=== PATIENT | female | born 1975 | race Caucasian/White ===

== ENCOUNTER 2018-07-11 13:24 | Emergency (ER) | payer OTHER, SELFPAY ==
[2018-07-11 13:28] VITALS: BP 157/84; PULSE 82; RESP 16; TEMP 36.7; O2SAT 98
--- NOTE | 2018-07-11 13:52 | W.ED.GENAD ---
Discharge Plan Disposition Patient Disposition: HOME Condition: Stable Discharge Details Chief Complaint: RespSymp Clinical Impression: Chronic cough, Dyspnea on exertion, Bronchitis Primary Care Provider: Myla Granado ED Provider: Angie Ortez Home Meds and New Rx's Prescriptions: New prednisone 20 mg tablet 20 mg PO DIRECTED Qty: 12 RF: 0 codeine-guaifenesin 10-100 mg/5 mL liquid 10 ml PO Q6H PRN (Reason: cough) Qty: 100 RF: 0 levofloxacin [Levaquin] 750 mg tablet 750 mg PO DAILY 5 Days Qty: 5 RF: 0 No Action escitalopram oxalate [Lexapro] 20 MG tablet 20 mg PO DAILY RF: 0 lamotrigine [Lamictal] 150 MG tablet 100 mg PO DAILY RF: 0 metoprolol succinate 50 MG tablet extended release 24 hr 50 mg PO DAILY RF: 0 multivitamin [Daily Multi-Vitamin] 1 EACH tablet 1 ea PO DAILY RF: 0 ibuprofen 200 MG tablet 200 mg PO PRN PRNRF: 0 omeprazole 20 MG capsule,delayed release(DR/EC) 20 mg PO DAILY RF: 0 metformin 500 mg Tablet 500 mg PO BID RF: 0 insulin glargine [Lantus U-100 Insulin] 100 unit/mL Solution 50 unit SUBCUT DAILY RF: 0 Discharge Instructions Instructions: Acute Bronchitis (ED), Dyspnea (ED), Acute Cough (ED) Additional Instructions: Continue to use your albuterol inhaler as needed and directed. Take the steroids and antibiotics until finished. Use the cough medicine as needed and directed. Check you sugar daily as steroids can raise your blood sugar. Watch your sugar and carb intake while taking steroids. Call your primary care doctor tomorrow morning to schedule follow-up for reevaluation. Return immediately to the emergency department with any worsening or new concerning symptoms. Discharge Data Discharge Physician: Angie Ortez Medical Decision Making 43-year-old female with a history of diabetes, hypertension, bipolar disorder who presents for persistent cough for the past 3 weeks. Main complaint is cough and dyspnea on exertion. Denies any chest pain or fever. Has been taking p.o. No relief with 40mg prednisone x 3 days and proair. Blood pressure mildly hypertensive otherwise vitals within normal limits. Normal respiratory rate, oxygen saturation and afebrile. Patient appears nontoxic, able to speak in full sentences. Lungs clear to auscultation, no wheezing noted on exam. Patient frequently coughing during exam. No leg swelling or calf tenderness. Appears c/w persistent viral infection that may have developed into bacterial infection or pneumonia. No complaints of chest pain and symptoms appear more infectious, so ACS unlikely. Wells score low, PERC negative and no other DVT/PE risk factors so unlikely pulmonary embolism. Patient is a nurse at [employer], [place]. She is offered a chest x-ray but declines. She has normal respirations, oxygen saturation and no fever with normal lung exam. We engaged in a shared decision-making process and patient would rather have a trial of antibiotics, a longer course of steroids, and cough medicine with plans to return if worse. Patient states she does not regularly check her sugar but states her last hemoglobin A1c was 6. She is instructed to check her sugar daily due to risk of hyperglycemia with steroid use. She is instructed to drink plenty of fluids, get plenty of rest, and continue her albuterol inhaler as directed. She is instructed to call her primary care doctor tomorrow to arrange for follow-up appointment for reevaluation this week and to return here immediately if worse. HPI General Mode of arrival: ambulatory. Date/Time Provider Initiated Documentation: 07/11/18 13:35. Limitations to Documentation: no limitations. Information obtained by: patient. HPI Narrative: Patient is a 43-year-old female with a history of diabetes, hypertension, bipolar who presents with a complaint of persistent cough for the past 3 weeks. Patient states her symptoms started as a URI with runny nose, sore throat cough but has progressed to worsening shortness of breath with exertion and persistent cough, worse at night. States the cough is occasionally dry but also productive of green sputum. She states her symptoms started with fever 3 weeks ago but not now. She states she has been eating and drinking well otherwise. She saw her primary care doctor earlier this week for the same complaint and was started on pro-air and 40 mg of prednisone for 3 days. She states she finished the steroids yesterday. She denies any chest pain, recent travel, recent surgery, leg pain or swelling. Related Data Home Medications Medication Instructions Recorded Confirmed escitalopram oxalate [Lexapro] 20 mg PO DAILY tab-cap 05/02/13 07/11/18 multivitamin [Daily Multi-Vitamin] 1 ea PO DAILY 01/21/14 07/11/18 ibuprofen 200 mg PO PRN PRN 04/13/15 07/11/18 omeprazole 20 mg PO DAILY 04/13/15 07/11/18 lamotrigine [Lamictal] 100 mg PO DAILY tab-cap 11/15/15 07/11/18 metoprolol succinate 50 mg PO DAILY tab-cap 07/17/16 07/11/18 codeine-guaifenesin 10 ml PO Q6H PRN #100 ml 07/11/18 insulin glargine [Lantus U-100 50 unit SUBCUT DAILY 07/11/18 07/11/18 Insulin] levofloxacin [Levaquin] 750 mg PO DAILY 5 Days #5 tab 07/11/18 metformin 500 mg PO BID 07/11/18 07/11/18 prednisone 20 mg PO DIRECTED #12 tab 07/11/18 Previous Rx's Medication Instructions Recorded codeine-guaifenesin 10 ml PO Q6H PRN #100 ml 07/11/18 levofloxacin [Levaquin] 750 mg PO DAILY 5 Days #5 tab 07/11/18 prednisone 20 mg PO DIRECTED #12 tab 07/11/18 Allergies Allergy/AdvReac Type Severity Reaction Status Date / Time Sulfa (Sulfonamide Allergy Severe Hives Unverified 07/11/18 13:31 Antibiotics) Penicillins Allergy Intermediate Hives Unverified 07/11/18 13:31 lisinopril Allergy Anaphylaxsi Unverified 07/11/18 13:31 s General Stated Complaint: RespSymp EMILY: 3 Review of Systems Review of Systems All systems reviewed & are unremarkable except as noted in HPI and below Constitutional Reports as per HPI, Denies chills and Denies fever(s) Eyes Denies blurry vision ENT Denies dizziness, Denies sore throat and Denies throat swelling Cardiovascular Denies chest pain and Reports dyspnea on exertion Respiratory Reports change in phlegm color, Reports cough and Reports dyspnea on exertion Gastrointestinal Denies abdominal pain, Denies diarrhea and Denies vomiting Genitourinary Denies hematuria and Denies dysuria Musculoskeletal Denies back pain and Denies numbness Integumentary/Breasts Denies lesions and Denies rash Neurologic Denies dizziness and Denies numbness Allergic/Immunologic Denies throat swelling PFSH Popliteal artery injury (Acute) Diabetes (Chronic) GERD (gastroesophageal reflux disease) (Chronic) Bipolar I disorder Herpes simplex Hypertension IUD (intrauterine device) in place History of repair of ACL (Acute) History of appendectomy (Chronic) Medical History Popliteal artery injury (Acute) Diabetes (Chronic) GERD (gastroesophageal reflux disease) (Chronic) Bipolar I disorder Herpes simplex Hypertension IUD (intrauterine device) in place Social History Smoking/Tobacco Use Status: Never Surgical History History of repair of ACL (Acute) History of appendectomy (Chronic) Social History Smoking/Tobacco Use Status: Never alcohol intake: current alcohol intake frequency: a few times a month substance use type: does not use Exam Const General: cooperative and healthy appearing Orientation: alert and awake HENMT Head: normal to inspection Ears: hearing grossly normal bilaterally, external ears normal and TM's normal bilaterally General nose exam: external nose normal Face and sinus: normal facial exam Mouth: oral mucosae normal Teeth and gingiva: dentition normal Throat: posterior oropharynx normal Eyes General: appearance normal, both eyes and all related structures Eyelids: eyelids normal Pupils: PERRL EOM: EOM intact bilaterally Neck Neck: normal visual inspection Lymphatic: no lymphadenopathy noted Chest Chest: normal inspection of the chest Resp Effort & Inspection: normal respiratory effort and able to speak in complete sentences Auscultation: clear to auscultation bilaterally, no crackles, no rales, no rhonchi and no wheezes Cardio Rate: regular rate Rhythm: regular rhythm GI Inspection: normal to inspection Skin General skin exam: no rashes or lesions noted Neuro General: alert and awake Cognition: normal cognition Speech: speech normal Gait: normal gait Motor: muscle tone normal throughout Sensory Exam: no sensory deficits noted Extrem General: normal to inspection, full ROM, normal capillary refill, no calf tenderness bilaterally and no edema Psych Appearance: grossly normal Mental Status: mental status grossly normal Speech and Movement: speech and movement normal Affect: normal affect Thought Process: normal Course Vital Signs Temperature 98.1 F 07/11/18 13:28 Pulse 82 07/11/18 13:28 Respiratory Rate 16 07/11/18 13:28 Blood Pressure 157/84 H 07/11/18 13:28 Pulse Oximetry 98 07/11/18 13:28 Temperature 98.1 F 07/11/18 13:28 Temperature Source Temporal Artery Scan 07/11/18 13:28 Pulse 82 07/11/18 13:28 Respiratory Rate 16 07/11/18 13:28 Respiratory Effort 07/11/18 13:33 Respiratory Depth Shallow 07/11/18 13:33 Blood Pressure 157/84 H 07/11/18 13:28 Blood Pressure Position Sitting 07/11/18 13:28 Pulse Oximetry 98 07/11/18 13:28 Oxygen Delivery Method Room Air 07/11/18 13:28 Oxygen Flow Rate 0 07/11/18 13:28 Pain Level 4 07/11/18 13:28
== END 2018-07-11 14:07 | disposition home or self-care (01) ==
PROVIDERS: Emergency Provider Physician Assistant; PCP Nurse Practitioner Family
DX: J18.9 Pneumonia, unspecified organism (principal); R06.09 Other forms of dyspnea; I10 Essential (primary) hypertension; E11.9 Type 2 diabetes mellitus without complications; Z79.4 Long term (current) use of insulin
CPT/HCPCS: 99283

== ENCOUNTER 2018-11-16 09:16 | Outpatient (REF) | payer OTHER, SELFPAY ==
[2018-11-16 12:48] LABS: HCT 39.3 % (36.0-46.0); HGB 13.2 g/dL (12.0-15.5); Mean Corp. HGB Concentration 33.6 g/dL (32.0-36.0); Mean Corpuscular Hemoglobin 30.1 pg (27.0-33.0); Mean Corpuscular Volume 89.5 fL (80-95); Mean Platelet Volume 10.9 fL (8.0-11.0); Platelet Count 229 x1000/uL (130-400); RBC 4.39 m/cumm (4.00-5.20); White Blood Cell Count 6.86 k/cumm (4.4-10.8)
[2018-11-16 13:50] LABS: ALT 32 U/L (12-78); AST 18 U/L (15-37); Albumin 3.7 g/dL (3.4-5.0); Alkaline Phosphatase 85 U/L (46-116); Anion Gap 11.5 mmol/L (3-11); BUN 12 mg/dL (7-18); Bilirubin, Total 0.6 mg/dL (0.2-1.0); CO2 26.5 mmol/L (21.0-32.0); CREATININE 0.68 mg/dL (0.55-1.02); Calcium 8.7 mg/dL (8.5-10.1); Chloride 99 mmol/L (98-107); Glucose 166 mg/dL (70-100); Sodium 137 mmol/L (136-145); TSH (W/Ref FT4) 1.87 uIU/mL (0.358-3.74); Total Protein 6.9 g/dL (6.4-8.2); Vitamin B12 647 pg/mL (193-986)
== END 2018-11-16 09:36 ==
LOC: NCHCN 09:16
PROVIDERS: PCP Nurse Practitioner Family; Visit Provider Nurse Practitioner Family
DX: F31.9 Bipolar disorder, unspecified (principal); F10.10 Alcohol abuse, uncomplicated
CPT/HCPCS: 80053; 85027; 82607; 84443

== ENCOUNTER 2019-06-23 02:20 | Outpatient (CLI) | payer OTHER, SELFPAY ==
--- NOTE | 2019-06-23 12:12 | DI.MAMMO_ITS ---
EXAM: MG MAMMO SCREENING CLINICAL HISTORY: SCREENING, Z12.31 TECHNIQUE: Bilateral full field digital CC and MLO mammographic images were obtained with 3D tomosyn thesis and utilizing computer aided detection (CAD). COMPARISON: Available for comparison. FINDINGS: Masses/Architectural Distortion: None seen. Microcalcifications: No suspicious pleomorphic-type are seen. Skin Thickening/Nipple Retraction: None. IMPRESSION: 1. No significant interval change with no specific features of malignancy noted. 2. Unless there is more urgent need, screening mammography is recommended, as per [place] [employer] guidelines. ACR BI-RAD Category- 1 Negative Breast Density - Category B - Scattered areas of fibroglandular density A negative radiographic report should not delay biopsy if a dominant or clinically suspicious mass is present. Up to ten percent of cancers are not identified on mammography. A negative report may reinforce clinical impression. Adenosis and dense breasts may obscure an underlying neoplasm. False positive reports average 6 to 10%. Patient will receive a letter notifying them of these results.
== END 2019-06-23 02:40 ==
PROVIDERS: PCP Nurse Practitioner; Visit Provider Nurse Practitioner
DX: Z12.31 Encounter for screening mammogram for malignant neoplasm of breast (principal)
CPT/HCPCS: 77063; 77067

== ENCOUNTER 2019-09-07 09:51 | Outpatient (REF) | payer OTHER, SELFPAY ==
[2019-09-07 19:51] LABS: Hemoglobin A1C 7.6 % (3.8-5.6)
[2019-09-07 20:11] LABS: ALT 69 U/L (14-59); AST 42 U/L (15-37); Albumin 3.9 g/dL (3.4-5.0); Alkaline Phosphatase 94 U/L (46-116); Anion Gap 10.5 mmol/L (3-11); BUN 10 mg/dL (7-18); Bilirubin, Total 0.5 mg/dL (0.2-1.0); CO2 27.5 mmol/L (21.0-32.0); CREATININE 0.63 mg/dL (0.55-1.02); Calcium 8.7 mg/dL (8.5-10.1); Calculated LDL 95 mg/dL (<100); Chloride 100 mmol/L (98-107); Cholesterol 173 mg/dL (<200); Glucose 182 mg/dL (74-106); HDL Cholesterol 39 mg/dL (40-60); Potassium 4.5 mmol/L (3.5-5.1); Sodium 138 mmol/L (136-145); TSH (W/Ref FT4) 1.45 uIU/mL (0.36-3.74); Total Protein 6.9 g/dL (6.4-8.2); Triglyceride 195 mg/dL (<150); Vitamin B12 886 pg/mL (193-986)
[2019-09-08 06:49] LABS: Vitamin D 25 Total 53.5 ng/ml (30-100)
== END 2019-09-07 10:11 ==
LOC: NCHCN 09:51
PROVIDERS: PCP Nurse Practitioner; Visit Provider Nurse Practitioner
DX: I10 Essential (primary) hypertension (principal); E11.9 Type 2 diabetes mellitus without complications; F10.10 Alcohol abuse, uncomplicated; F32.9 Major depressive disorder, single episode, unspecified
CPT/HCPCS: 80053; 80061; 82306; 82607; 83036; 84443

== ENCOUNTER 2020-06-05 11:29 | Outpatient (REF) | payer OTHER, SELFPAY ==
--- NOTE | 2020-06-05 11:00 | PAPFT_PTH ---
PATIENT: Deborah Monae LOC: [facility] U#:[id number] AGE/SX: 45/F ROOM: RE06/05/[address]: SU BlackmanP : 1975 BED: DIS: 06/05/2020 SPEC #: [id number] RECD: 06/05/20 12:49 STATUS: SYLVIA REQ #: [id number] LISA: 06/05/20 11:[address]: Leatha Aguilera DEPT: [facility] Cytology RECD BY: Alexandra Meza ENTERED: 06/05/20 12:49 SP TYPE: PAPFT OTHR DR: Nicole Hua Tissues: 1 - CX/ENDOCX FOR PAP SMEARS Procedures: PAP THIN PREP/UVM Screening Comments: [phone] ([facility])
== END 2020-06-05 11:49 ==
LOC: LBN 11:29
PROVIDERS: PCP Nurse Practitioner; Visit Provider Nurse Practitioner Family
DX: Z12.4 Encounter for screening for malignant neoplasm of cervix (principal); Z97.5 Presence of (intrauterine) contraceptive device
CPT/HCPCS: 88142

== ENCOUNTER 2021-02-26 15:09 | Outpatient (REF) | payer OTHER, SELFPAY ==
[2021-02-26 20:07] LABS: Anion Gap 12.4 mmol/L (3-11); BUN 13 mg/dL (7-18); CO2 23.6 mmol/L (21.0-32.0); CREATININE 0.7 mg/dL (0.55-1.02); Calcium 9.2 mg/dL (8.5-10.1); Chloride 103 mmol/L (98-107); Glucose 159 mg/dL (74-106); Potassium 4.2 mmol/L (3.5-5.1); Sodium 139 mmol/L (136-145)
== END 2021-02-26 15:10 | disposition home or self-care (01) ==
LOC: NCHCN ADD 15:09
PROVIDERS: PCP Nurse Practitioner; Visit Provider Nurse Practitioner Family
DX: E11.9 Type 2 diabetes mellitus without complications (principal)
CPT/HCPCS: 80048

== ENCOUNTER 2021-02-28 09:53 | Outpatient (REF) | payer OTHER, SELFPAY | END 2021-02-28 09:54 | disposition home or self-care (01) | LOC: NCHCN 09:53 | PROVIDERS: PCP Nurse Practitioner; Visit Provider Nurse Practitioner Family | DX: R69 Illness, unspecified (principal) ==

== ENCOUNTER 2021-05-03 19:27 | Emergency (ER) | payer OTHER, SELFPAY ==
[2021-05-03 19:34] VITALS: BP 167/99; PULSE 89; RESP 19; TEMP 36.1; O2SAT 98
--- NOTE | 2021-05-03 20:00 | DI.RAD_ITS ---
Exam(s) XR KNEE RT 3V AP,LAT,ZEUS EXAM: XR KNEE RT 3V AP,LAT,ZEUS CLINICAL HISTORY: pain, injury. TECHNIQUE: 2D digital imaging was performed of the right knee. Three views obtained. AP, lateral an d AP tunnel views were obtained. COMPARISON: No exams were available for comparison FINDINGS: BONES: No acute fracture is present. No bony destructive lesion is seen. Mild spurring of the posteri or patella. JOINTS: The knee is normally aligned. Small joint effusion. SOFT TISSUE: Normal. IMPRESSION: Small joint effusion. DATA REPOSITORY: RADIATION DOSE DELIVERED:
--- NOTE | 2021-05-03 20:28 | ED.GENADUL_ITS ---
Discharge Plan Disposition Patient Disposition: HOME Condition: Stable Discharge Details Clinical Impression: Injury of knee, right Primary Care Provider: Nicole Hua ED Provider: Von Langston Home Meds and New Rx's Prescriptions: Continued Ozempic 0.25 mg or 0.5 mg(2 mg/1.5 mL) pen injector 0.5 mg subcut QWEEK RF: 0 amlodipine 10 mg tablet 10 mg PO DAILY RF: 0 escitalopram oxalate [Lexapro] 20 MG tablet 20 mg PO DAILY RF: 0 lamotrigine [Lamictal] 150 MG tablet 100 mg PO DAILY RF: 0 metoprolol succinate 50 MG tablet extended release 24 hr 50 mg PO DAILY RF: 0 multivitamin [Daily Multi-Vitamin] 1 EACH tablet 1 ea PO DAILY RF: 0 ibuprofen 200 MG tablet 200 mg PO PRN PRNRF: 0 omeprazole 20 MG capsule,delayed release(DR/EC) 20 mg PO DAILY RF: 0 hydrochlorothiazide 25 mg Tablet 25 mg PO DAILY RF: 0 Lantus U-100 Insulin 100 unit/mL Solution 50 unit SUBCUT DAILY RF: 0 metformin 500 mg tablet 500 mg PO BID RF: 0 Discontinued metoprolol tartrate 50 mg tablet 50 mg PO DAILY RF: 0 valacyclovir [Valtrex] 500 mg tablet 500 mg PO Q12H Qty: 6 RF: 5 Discharge Instructions Instructions: Knee Sprain (ED), Hinged Knee Brace (ED) Additional Instructions: Use hinged knee brace and crutches. You can bear weight as tolerated. Please contact orthopedics to arrange follow-up. Additional diagnostic testing may be necessary if pain persists to assess for ligamentous injury. Return to the ER for any worsening or new concerning symptoms. Referrals: [facility] [Provider Group] Medical Decision Making 46-year-old female here with injury to her right knee that occurred just prior to arrival. Mechanism is concerning for meniscal tear versus ligamentous injury versus less likely fracture. Patient took ibuprofen prior to arrival. Ice pack was applied. X-ray of the right knee was interpreted by radiology: No acute fracture or dislocation. A small suprapatellar joint effusion is present. Plan for hinged knee brace and crutches. Patient was instructed to weight-bear as tolerated. Follow-up orthopedics HPI General Mode of arrival: ambulatory . Date/Time Provider Initiated Documentation: 05/03/21 20:01 . Limitations to Documentation: no limitations . Information obtained by: patient . HPI Narrative: 46-year-old female presents with chief complaint of right knee pain. Patient notes about an hour prior to arrival she was attempting to mount a horse. She had her left foot in the stirrup and was standing on her right leg bouncing and believes she twisted her leg. She had immediate pain. She also then had difficulty getting her left leg stirrup which may have exacerbated the injury. Pain is persisted. Pain is moderate to severe and worse with movement of the knee and attempted ambulation. She has no associated numbness tingling. No other injury. Related Data Home Medications Medication Instructions Recorded Confirmed escitalopram oxalate [Lexapro] 20 mg PO DAILY tab-cap 05/02/13 05/03/21 multivitamin [Daily Multi-Vitamin] 1 ea PO DAILY 01/21/14 05/03/21 ibuprofen 200 mg PO PRN PRN 04/13/15 05/03/21 omeprazole 20 mg PO DAILY 04/13/15 05/03/21 lamotrigine [Lamictal] 100 mg PO DAILY tab-cap 11/15/15 05/03/21 metoprolol succinate 50 mg PO DAILY tab-cap 07/17/16 05/03/21 Lantus U-100 Insulin 50 unit SUBCUT DAILY 07/11/18 05/03/21 amlodipine 10 mg tablet 10 mg PO DAILY 06/05/20 05/03/21 metformin 500 mg tablet 500 mg PO BID 06/05/20 05/03/21 semaglutide 0.5 mg SUBCUT QWEEK 06/05/20 05/03/21 hydrochlorothiazide 25 mg PO DAILY 05/03/21 05/03/21 Allergies Allergy/AdvReac Type Severity Reaction Status Date / Time Sulfa (Sulfonamide Allergy Severe Hives Verified 05/03/21 19:37 Antibiotics) Penicillins Allergy Intermediate Hives Verified 05/03/21 19:37 lisinopril Allergy Anaphylaxsi Verified 05/03/21 19:37 s General Stated Complaint: Orthopedic EMILY: 3 Review of Systems Musculoskeletal Musculoskeletal: Reports as per HPI Neurologic Neurologic: Reports as per HPI [facility] Medical History Bipolar I disorder Diabetes GERD (gastroesophageal reflux disease) Herpes simplex Hypertension IUD (intrauterine device) in place Popliteal artery injury Surgical History History of appendectomy History of repair of ACL Family History Father Hypertension BPH (benign prostatic hyperplasia) Social History Smoking/Tobacco Use Status: Never Smoking risk assessment performed?: Yes Alcohol Intake: current Alcohol Intake frequency: a few times a month Drug use: Never Substance use type: does not use Do you feel safe at home: Yes Do you feel safe in your relationship?: Yes History History 2 Para 2 Hx # Term Pregnancies Multiple births Hx # Pregnancies Ectopic pregnancies AB induced Hx Number of Living Children AB spontaneous Exam Const General: cooperative and no acute distress Cardio Rate: regular rate and not tachycardic Rhythm: regular rhythm Pulses: dorsalis pedis present on the right (Strong) Skin General skin exam: no rashes or lesions noted Neuro General: patient alert, patient awake, patient oriented x3 and tone normal Other: Distal right lower extremity sensation and motor intact Extrem Right lower extremity: knee Details: tenderness Location: of the medial joint line and swelling; no ecchymosis, no deformity and no unusual warmth Course Vital Signs Vital signs: Vital Signs Temperature 36.1 C L 05/03/21 19:34 Pulse 89 05/03/21 19:34 Respiratory Rate 19 05/03/21 19:34 Blood Pressure 167/99 H 05/03/21 19:34 Pulse Oximetry 98 05/03/21 19:34 Temperature 36.1 C L 05/03/21 19:34 Temperature Source Temporal Artery Scan 05/03/21 19:34 Pulse 89 05/03/21 19:34 Respiratory Rate 19 05/03/21 19:34 Respiratory Effort 05/03/21 19:43 Blood Pressure 167/99 H 05/03/21 19:34 Blood Pressure Position Sitting 05/03/21 19:34 Pulse Oximetry 98 05/03/21 19:34 Oxygen Delivery Method Room Air 05/03/21 19:34 Oxygen Flow Rate 0 05/03/21 19:34 Pain Level 5 05/03/21 19:43
--- NOTE | 2021-05-03 21:07 | DI.VRAD_ITS ---
PROCEDURE INFORMATION: Exam: XR Right Knee Exam date and time: 05/03/2021 8:03 PM Age: 46 years old Clinical indication: Other: Pain, injury TECHNIQUE: Imaging protocol: XR Right knee. Views: 3 views. COMPARISON: No relevant prior studies available. FINDINGS: Bones/joints: A small suprapatellar joint effusion. No acute fracture or dislocation. No significant degenerative changes. Soft tissues: Normal. IMPRESSION: 1. No acute fracture or dislocation. 2. A small suprapatellar joint effusion. Dictated and Authenticated by: Marin Triplett MD. Ordering:KAROL Longoria MD
[2021-05-03 21:50] VITALS: BP 157/78; PULSE 78; RESP 20; TEMP 36.7; O2SAT 98
== END 2021-05-03 21:48 | disposition home or self-care (01) ==
PROVIDERS: Emergency Provider Student in an Organized Health Care Education/Training Program; PCP Nurse Practitioner
DX: M25.461 Effusion, right knee (principal); S89.91XA Unspecified injury of right lower leg, initial encounter; X50.9XXA Other and unspecified overexertion or strenuous movements or postures, initial encounter
CPT/HCPCS: 29505; 73562; 99283

== ENCOUNTER 2021-05-13 08:07 | Outpatient (CLI) | payer OTHER, SELFPAY ==
--- NOTE | 2021-05-13 08:00 | DI.MRI_ITS ---
Exam(s) MR LOWER JOINT RT WO EXAM: MR LOWER JOINT RT WO CLINICAL HISTORY: right knee injury,pain,[id number] TECHNIQUE: Multiplanar multisequence MRI was performed.. COMPARISON: No exams were available for comparison FINDINGS: MR examination of the knee was performed according to the usual protocol. There is a moderate-sized joint effusion. There is a Lopez's cyst measuring roughly 5 by 3 cm sagitt al images. Note is made of apparent marrow reconversion with replacement of the fatty marrow at the ends of the long bones. Medial tibiofemoral joint: There is moderate thinning with irregular surface of the articular cartila ge of the medial femoral condyle and medial tibial plateau. There is a tear posterior meniscus which is nondisplaced. There is a grade 1 medial collateral ligament strain. Lateral tibiofemoral joint: The articular cartilage of the femur and tibia appears slightly thinned. The meniscus and attachments appear intact. The lateral collateral ligament complex and posterolate ral corner structures appear intact. Patellofemoral joint and extensor mechanism: The articular cartilage of the patellofemoral joint appe ars intact. The superior and inferior patellar fat pads show mild edema which is nonspecific. The quadriceps tendon and patellar tendon appear intact with no evidence of a tear or significant eladio ma. The medial and lateral retinacula appear intact. Cruciate ligaments: There is full-thickness tear of anterior cruciate ligament. There is a little if any visible remaining ligament. Posterior cruciate appears intact. Tibiofibular joint: No specific abnormality involving the tibiofibular joint. IMPRESSION: Anterior cruciate ligament tear, full-thickness, probably chronic. Medial meniscal tear and moderate articular cartilage degenerative changes the medial tibiofemoral joey int. Marrow reconversion noted, please correlate clinically. DATA REPOSITORY:
== END 2021-05-13 08:27 ==
PROVIDERS: PCP Nurse Practitioner; Visit Provider Student in an Organized Health Care Education/Training Program
DX: S83.511A Sprain of anterior cruciate ligament of right knee, initial encounter (principal); S83.241A Other tear of medial meniscus, current injury, right knee, initial encounter
CPT/HCPCS: 73721

== ENCOUNTER 2021-06-12 02:40 | Outpatient (CLI) | payer OTHER, SELFPAY ==
[2021-06-12 13:10] LABS: Source Nasal/Nares
[2021-06-12 22:06] LABS: COVID-19 PCR Negative (Negative)
== END 2021-06-12 02:41 | disposition home or self-care (01) ==
LOC: LBO 02:40
PROVIDERS: PCP Nurse Practitioner; Visit Provider Student in an Organized Health Care Education/Training Program
DX: Z20.822 Contact with and (suspected) exposure to COVID-19 (principal); Z01.818 Encounter for other preprocedural examination
CPT/HCPCS: 81025; 87635

== ENCOUNTER 2021-06-14 05:56 | Day surgery (SDC) | payer OTHER, SELFPAY ==
[2021-06-14] VITALS (11 sets, daily range): BP systolic 129–152; BP diastolic 80–96; PULSE 57–95; RESP 12–23; TEMP 36.6–37.1; TEMPC 36.4; O2SAT 95–100; BMI 39.3
[2021-06-14] MEDS: Lactated Ringers 1,000 ML 100 ML IV (06:40)
--- NOTE | 2021-06-14 07:02 | W.ANESPRE ---
General Info Date of Service Date Performed: 06/14/21 Height: 5 ft 3 in Weight: 100.8 kg Body Mass Index (BMI): 39.3 Surgical Procedure: Operation Date: 06/14/21 07:40 Proposed Procedures Side Surgeon p Knee Arthroscopy with acl, possible medial miniscal repai, and any indicated meniscal, chondral, or synovial surgery Right Rohan Matta MD Meds Allergies and Home Medications Allergies Allergy/AdvReac Type Severity Reaction Status Date / Time Sulfa (Sulfonamide Allergy Severe Hives Verified 06/14/21 06:18 Antibiotics) Penicillins Allergy Intermediate Hives Verified 06/14/21 06:18 lisinopril Allergy Anaphylaxsi Verified 06/14/21 06:18 s Home Medication Medication Instructions Recorded escitalopram oxalate [Lexapro] 20 mg PO DAILY tab-cap 05/02/13 multivitamin [Daily Multi-Vitamin] 1 ea PO DAILY 01/21/14 ibuprofen 200 mg PO PRN PRN 04/13/15 omeprazole 20 mg PO DAILY 04/13/15 lamotrigine [Lamictal] 100 mg PO DAILY tab-cap 11/15/15 metoprolol succinate 50 mg PO DAILY tab-cap 07/17/16 Lantus U-100 Insulin 50 unit SUBCUT DAILY 07/11/18 metformin 500 mg tablet 500 mg PO BID 06/05/20 semaglutide 0.5 mg SUBCUT QWEEK 06/05/20 hydrochlorothiazide 25 mg PO DAILY 05/03/21 acetaminophen 325 mg capsule 325 mg PO ONCE PRN 05/23/21 Current Visit Medications: Current Medications Generic Name Dose Route Start Last Admin Trade Name Freq PRN Reason Stop Dose Admin Ringer's Solution 1,000 mls @ 100 mls/hr 06/14/21 06:00 06/14/21 06:40 IV 07/02/21 23:59 100 mls/hr INFUSION IFEOMA Administration Cefazolin Sodium 3,000 mg/ 100 mls @ 200 mls/hr 06/14/21 06:00 Sodium Chloride IVPB 06/14/21 16:00 PREOP IFEOMA IV Miscellaneous Supplies 1 each 06/14/21 06:00 Iv Access IV 07/02/21 23:59 DIRECTED IFEOMA Sodium Chloride 0 ml 06/14/21 06:00 Normal Saline Flush 10 Ml Syr IV 07/02/21 23:59 PRN PRN Sodium Chloride 0 ml 06/14/21 06:00 Normal Saline 10 Ml Vial IJ 07/02/21 23:59 DIRECTED PRN Sterile Water 0 ml 06/14/21 06:00 Water,Injection,Sterile 10 Ml Vial IJ 07/02/21 23:59 DIRECTED PRN PFSH Active Problems Active Problems: Problem Status Onset Code Acute medial meniscus tear of right knee 05/03/21 S83.241A Right ACL tear 05/03/21 S83.511A Hypertension I10 Diabetes E11.9 Depression F32.9 GERD (gastroesophageal reflux disease) K21.9 Medical History Medical History Bipolar I disorder Diabetes GERD (gastroesophageal reflux disease) Herpes simplex Hypertension IUD (intrauterine device) in place Popliteal artery injury Surgical History Surgical History History of appendectomy History of repair of ACL Tobacco Smoking/Tobacco Use Status: Never Alcohol Alcohol Intake: current Alcohol intake frequency: a few times a month Substance Use Substance use: Never Substance use type: does not use Prental History History 2 Para 2 Hx # Term Pregnancies Multiple births Hx # Pregnancies Ectopic pregnancies AB induced Hx Number of Living Children AB spontaneous Vital Signs and Lab Results Vital Signs Most Recent Vital Signs in EMR: Most Recent Vital Signs Temp Pulse Resp BP Pulse Ox 37.1 C 77 18 145/85 H 97 06/14/21 06:00 06/14/21 06:00 06/14/21 06:00 06/14/21 06:00 06/14/21 06:00 Point of Care Results Point of Care Results: POC- Test(urine) Negative 06/14/21 06:33 Lab Results Blood Type / Crossmatch: No Data to Display Complete Blood Count: No Data to Display Complete Metabolic Panel: No Data to Display Liver Function Panel: No Data to Display Coagulation Panel: No Data to Display Cardiac Panel: No Data to Display Arterial Blood Gas: No Data to Display Venous Blood Gas: No Data to Display Pancreas Panel: No Data to Display Thyroid Panel: No Data to Display Infectious Disease: Coronavirus (COVID-19)(PCR) Negative (Negative) 06/12/21 11:07 06/12/21 Coronavirus 2019 Source Nasal/Nares 06/12/21 11:07 06/12/21 Blood Cultures: No Data to Display Toxicology Panel: No Data to Display Panel: No Data to Display Anesthesia Assessment and Plan Anesthesia History Personal History: No History of Anesthesia Complications Family History: No Family History of Anesthesia Complications Exercise Tolerance Exercise Tolerance: Metabolic Equivalents>4 Pertinent Negatives Pertinent Negatives: No Symptoms of GERD, No Major Cardiovascular Symptoms or Complaints, No Major Pulmonary Symptoms or Complaints and No History of CVA/TIA Cardiac & Pulmonary Exam Cardiac Exam: Normal S1/S2 Heart Sounds Pulmonary Exam: Clear Bilateral Breath Sounds Implantable Cardiac Device Does patient have a Pacemaker or an ICD?: No Airway Exam Known Difficult Airway: No Mallampati Class: 1 Mouth Opening: Normal (> 3cm) Thyromental Distance: Less than 3 cm Neck Range of Motion: Full ROM Neck Circumference: Thick Teeth Condition: Normal Dentition ASA Classification ASA Score: ASA 2 Emergency Case?: No NPO Status NPO Status: NPO Clears >2 hours, Solids >8 hours Status Status: Negative HCG Anesthesia Plan Resuscitation Status: Full Code Anesthesia Technique: General Anesthesia Airway Planned: LMA Pain Management: Surgeon and patient request nerve block Monitors Used: Standard Monitors
--- NOTE | 2021-06-14 07:34 | W.ANESNERVE ---
Nerve Block Single Injection Procedure Date and Time Date Performed: 06/14/21 Procedure Start: 07:35 Location Where Procedure Performed Procedure Location: Day Surgery Unit Reason Performed: Postoperative Analgesia Requesting Provider: Rohan Matta Timeout Performed Timeout Performed: Yes Monitoring Used ECG, Blood Pressure and SpO2 Sterility Sterility: Hand Hygiene, Surgical Cap, Surgical Mask, Sterile Gloves, Eye Protection and Chlorhexidine Sedation Given During Procedure Sedation Given (Indicate Dose Given): No Sedation given Patient Mental Status Patient Mental Status: Awake Nerve Block 1st Nerve Block: Laterality: Right Block Type: Femoral Needle / Catheter Used: 100mm SonoPlex II Local Anesthetic Bolus (Indicate Dose Given): Lidocaine used for local infiltration of skin (2 cc 1% lidocaine from PACU Pyxis), Bupivacaine 0.5% Dose:: 10cc and Exparel Dose:: 10cc Additives (Indicate Dose Given): None Ultrasound: Sterile probe cover and gel used Ultrasound Image Saved?: Yes Nerve Stimulator: Not Used Paresthesia: None Procedure Tolerated: No Complications and Patient tolerated well Procedure Outcome: Successful Performed By: Neel Centeno
[2021-06-14] MEDS: ceFAZolin 3,000 MG in Normal Saline 100 ML 200 MG IVPB (07:53)
--- NOTE | 2021-06-14 10:24 | ROE_ITS ---
Date of service: 06/14/21 Time of Service: 08:00 Operative Note Operative Note DATE OF PROCEDURE: 06/14/21 PRE-OP DIAGNOSIS: Right knee: 1. ACL rupture 2. Medial meniscus tear 3. Stiffness POST-OP DIAGNOSIS: other Right knee: 1. ACL rupture 2. Medial meniscus tear 3. Stiffness 4. Lateral meniscus tear PROCEDURE: Right knee: 1. Allograft ACL reconstruction, CPT #81865 2. Partial medial and partial lateral meniscectomy, CPT #73879 3. Manipulation under anesthesia, CPT #68149 SURGEON: Rohan Matta COURT SECURITY OFFICER: Jory Holbrook ANESTHESIA TYPE: Local By Surgeon, General LMA/ETT and Primary Nerve Block Refer to Anesthesia Record ESTIMATED BLOOD LOSS: 15 PATHOLOGY: none sent TOURNIQUET TIME: 0 COMPLICATIONS: None Patient was transported to: PACU Patient's condition: stable Implants: Arthrex ACL TightRope II RT and ABS with 14mm round cortical button Indications: Please see complete medical record for details. Findings: Residual stiffness range of motion about 0?120 under anesthesia. Grossly unstable Celeste. Post?manipulation release of peripatellar and suprapatellar pouch adhesions achieve full flexion limited by soft tissue envelope may be 135 degrees. Photos taken. Partial posterior horn root junction tear about 50% with degenerative white zone only horizontal tearing posterior horn extending into the medial meniscal body Displaced parrot-beak white zone only lateral meniscus tear Complete mid substance ACL tear with minimal tissue on the lateral wall and significant displaced frayed tissue intercondylar area as well as flipped anterior in a cyclops fashion Procedure Description: In the operating room, general anesthesia was induced. The patient was positioned supine on the operating room table. All bony prominences were well-padded. Preoperative antibiotics were administered. The right knee was prepped and draped in the usual sterile fashion. The correct patient, procedure, and side of the procedure were all verified prior to incision. On the back table, the allograft was prepared. A tibialis anterior measuring 270 mm and doubled over 8 mm was prepared into a quadrupled graft link fashion with a tight rope to RT on the femoral side and tight rope to ABS on the tibial side. The free limbs were secured together using a suture tape fiber loop and passed through the crotch on the ABS side and tied over the tendon here before being brought over the graft prep and secured with the ABS sutures as well. A suture tape was then used to secure in a buried fashion 4 pairs 360 degrees passed around on tibial tibial and and 2 pairs placed on the femoral side. Sutures were carefully spaced to be 20 mm from the ends of the graft. The graft was measured prior to tension about 68 mm. It was about 10 mm in diameter. The 10 mm graft was used to compress the graft into the appropriate size and tension applied on the back table. The graft was covered in a vancomycin wet lap while the knee was prepared. Exam under anesthesia was performed. 20 cc 0.5 cm given epinephrine infiltrated about the planned anteromedial, anterolateral, lateral femoral, and pretibial surgery sites. The standard high and tight anterolateral anteromedial portals were established and a complete diagnostic arthroscopy was performed with relevant findings detailed above. An 8 x 3 passport was inserted in both the anteromedial anterolateral portals. In the intercondylar area, the mechanical shaver was used to remove the remnant ACL leaving but leave just enough footprint on the femur and tibia to localize tunnels. Only a small notchplasty was necessary to allow visualization of the back wall as well as optimize bone marrow stimulation for healing. The medial meniscus was visualized and probed by the root. There is a somewhat unusual partial radial tear off the root about 50% of the white zone into the red-white zone. The majority of the red-white zone and white zone capsular meniscus was intact. The tear did not extend additionally into the root or posterior horn. It did not appear to need repair or be well apposed for repair and healing. The bulbous ends about the tear were then contoured and smoothed with the meniscal biter and mechanical shaver. The remnant was probed and found to have a stable junction and posterior horn. There are no additional tears in the posterior horn or meniscal body. Did not require any meniscal root repair. The lateral meniscus had a displaced parrot-beak type white zone only tear. From the central meniscal body. Mechanical shaver was used to resect this displaced meniscal tissue and contour as necessary the meniscal body especially anteriorly and to a smooth stable margin. The remnant was probed found to be stable no additional tears at the body or posterior horn. Attention was then turned to the ACL reconstruction. The 6 and 9 guide was used to target the appropriate location for anatomic placement of the ACL origin. A small incision was made at the lateral thigh for placement of the drill guide down to bone. The flip cutter was used targeting the appropriate location. The drill guide malleted 7 mm appropriately into the far cortex. The remainder of the handling guide was removed. The flip cutter was deployed to 10 mm and then retrograde reaming done for socket of 30 mm depth. The flip cutter did not fully close to the 3.5 mm necessary to pull out the drill guide. With a clamp in the notch through a portal the flip cutter was able to be closed. A fiber stick was then used to find the entrance to the tunnel laterally and then securing shuttle suture through the anterior lateral portal. The tibial guide was then used in some remnant ACL at the tibial insertion was removed centrally to allow best placement for the guide. A pretibial incision was made in the drill guide placed on bone. The flip cutter was then used to drill drilled to the appropriate location. The drill guide malleted 7 mm into the cortex the remainder of the guide and handle removed. The flip cutter deployed to 10 mm and then in retrograde fashion a socket of 25 mm created. A fiber stick was used to place a passing suture here and secured anterior medially. The mechanical shaver was used to remove bone drilling debriding thoroughly as well as carefully chamfer and remove soft tissue from the edges of the sockets to allow for best graft passage. The prepared graft was then brought over to the knee. Anteromedial passport removed. Both shuttle sutures brought out carefully over a half pipe. The femoral RT sutures were then shuttled through the anteromedial portal out the lateral thigh. The tight rope device had been lengthened to allow for camera placement in the anteromedial portal as well once the button was passed into the femoral tunnel. Under direct visualization the button was advanced to the end of the socket and then through the far cortex drill hole and carefully flipped on the far cortex. Back pressure on the graft confirmed appropriate cortical placement as well as toggling the past and flipping sutures. The camera was brought back to the anterior lateral portal and the graft advanced into the knee through the anteromedial portal and then advanced 20 mm into the femoral socket. The ABS and fiber loop sutures were then shuttled through the anterior tunnel. The graft was assisted into the knee and into the tibial socket with the probe. The graft was dunked about 15 mm with manual pressure on the ABS loop. A larger 14 mm round button was selected and carefully loaded with the ABS sutures as well as the fiber loop stitches. The sutures were tightened bringing the button down to the anterior tibial cortex. Almost 20 mm was advanced into the tibia. The graft prep sutures were about flush with both the femoral and tibial sockets. Additional tightening was done on both the femoral and tibial sides. The knee was then cycled 22 times an additional tightening done on both the femoral and tibial sides. The graft tension and trajectory was confirmed and appropriate. There was no impingement or notching in full extension. The knee was brought into full extension of the table. The physician assistant surgery applied and maintained a moderate reverse Celeste. Final tightening was done on both ends of the graft with minimal additional advancing. Celeste exam was stable. Passing sutures removed. The fiber loop sutures were tied over the ABS button. Both the ABS and RT sutures were tied and cut. The knee was copiously irrigated and the mechanical shaver used to ensure no bone tunnel or debris remained in the knee. Shaver was also used to remove some small peripatellar adhesions that had been released with the manipulation. All portals and incisions were copiously irrigated. 3-0 Monocryl was used to close the portals and small incisions in a buried interrupted fashion. Mastisol Steri-Strips Xeroform and 4 x 4 gauze applied over the incisions. 30 cc 0.5% bupivacaine infiltrated into the suprapatellar pouch after closure. The knee was wrapped in sterile soft roll and the extremity gently in an Gary bandage. The soft knee immobilizer placed. The patient awoke from anesthesia without complication and was transferred to the recovery room in a stable condition.
[2021-06-14] MEDS: EPINEPHrine 30 MG/30 ML VIAL (10:28)
--- NOTE | 2021-06-14 11:33 | PDOC.DSDIS_ITS ---
Discharge Plan Disposition Patient Disposition: HOME Condition: Stable Discharge Details Reason For Visit: Right knee surgery Attending Provider: Rohan Matta Primary Care Provider: Nicole Hua Home Meds and New Rx's Prescriptions: New aspirin 81 mg tablet,delayed release (DR/EC) 81 mg PO BID 30 Days Qty: 60 RF: 0 naproxen 250 mg tablet 250 - 500 mg PO BID PRN (Reason: Moderate pain or swelling) Qty: 60 RF: 0 oxycodone 5 mg tablet 5 - 10 mg PO Q4H PRN (Reason: moderate to severe pain) Qty: 22 RF: 0 Continued Ozempic 0.25 mg or 0.5 mg(2 mg/1.5 mL) pen injector 0.5 mg subcut QWEEK RF: 0 acetaminophen 325 mg capsule 325 mg PO ONCE PRNRF: 0 escitalopram oxalate [Lexapro] 20 MG tablet 20 mg PO DAILY RF: 0 lamotrigine [Lamictal] 150 MG tablet 100 mg PO DAILY RF: 0 metoprolol succinate 50 MG tablet extended release 24 hr 50 mg PO DAILY RF: 0 multivitamin [Daily Multi-Vitamin] 1 EACH tablet 1 ea PO DAILY RF: 0 omeprazole 20 MG capsule,delayed release(DR/EC) 20 mg PO DAILY RF: 0 hydrochlorothiazide 25 mg Tablet 25 mg PO DAILY RF: 0 Lantus U-100 Insulin 100 unit/mL Solution 50 unit SUBCUT DAILY RF: 0 metformin 500 mg tablet 500 mg PO BID RF: 0 Discontinued ibuprofen 200 MG tablet 200 mg PO PRN PRNRF: 0 Discharge Instructions Additional Instructions: Surgery: Right knee arthroscopy with allograft ACL reconstruction, partial medial and partial lateral meniscectomy, and manipulation under anesthesia Activity: Weightbearing as tolerated. Advance range of motion as comfort allows. It is important to restore full extension as soon as possible. No knee brace or crutches needed as soon as comfortable. A physical therapy prescription will be sent electronically to start in 2 to 3 weeks. Prescriptions: Aspirin 81 mg take 1 twice daily to prevent a blood clot for 30 days Naproxen 250 mg take 1-2 every 12 hours with a meal as needed for moderate pain Oxycodone 5 mg take 1-2 every 4-6 hours as needed for severe pain You may use [id number] Tylenol (acetaminophen) as needed for mild pain. These pain medications may be taken all at once or in different combinations as needed. Also, recommend Colace (docusate) as a stool softener as surgery and pain medicine cause constipation. Dressings: Adjust and/or remove knee brace and Gary wrap as needed to accommodate swelling. Leave dressing underneath in place for 5 days. May tthen remove and leave open to air or cover incisions with Band-Aids. May shower after 7 days. Follow-up: 10-[address] Matta Let us know right away if you develop any redness, drainage, fevers, chest pain, or trouble breathing. Do not drink alcohol or drive for at least 24 hours after anesthesia. Please call the office during business hours with any questions or concerns. Referrals: Rohan Matta MD [ [facility] STAFF PHYSICIAN] - Discharge Orders Discharge Orders: Discharge Order (Routine); Ordered 06/14/21 Ordered By: Rohan Matta DS: Diagnosis Discharge Diagnosis (1) Acute medial meniscus tear of right knee: Status: Acute (2) Right ACL tear: Status: Acute (3) Stiffness of right knee: Status: Acute (4) Acute lateral meniscal injury of right knee: Status: Acute
--- NOTE | 2021-06-14 12:42 | W.ANESPOSTOP ---
Postoperative Evaluation Date, Time and Location Date Performed: 06/14/21 Time Performed: 12:42 Patient Location: Day Surgery Unit Vital Signs Most Recent Imported Vital Signs: Most Recent Vital Signs Temp Pulse Resp BP Pulse Ox 36.6 C 76 14 137/85 96 06/14/21 12:11 06/14/21 12:11 06/14/21 12:11 06/14/21 12:11 06/14/21 12:11 Most Recent Manually Entered Vital Signs: Adult Blood Pressure: 152/80 Heart Rate: 57 Respirations: 12 Oxygen Saturation (%): 97 Temperature (C): 36.4 C Pain Score (0-10 Scale): 0 Pain Score Most Recent Pain Score: Most Recent Pain Score Pain Level 2 06/14/21 12:11 Assessment Mental Status: Awake (Alert & Oriented to Patient Baseline) Airway and Respiratory Function: Patent airway with normal (patient baseline) respiratory exam Cardiovascular Function: Hemodynamically Stable Hydration Status: Adequately Hydrated Nausea & Vomiting: No Nausea or Vomiting Pain: Pt. Denies Any Pain Peripheral Nerve Block: Patient did not receive a nerve block
--- NOTE | 2021-06-14 12:53 | W.ANESPOSTOP ---
Postoperative Evaluation Date, Time and Location Date Performed: 06/14/21 Time Performed: 12:54 Patient Location: Day Surgery Unit Vital Signs Most Recent Imported Vital Signs: Most Recent Vital Signs Temp Pulse Resp BP Pulse Ox 36.6 C 76 14 137/85 96 06/14/21 12:11 06/14/21 12:11 06/14/21 12:11 06/14/21 12:11 06/14/21 12:11 Most Recent Vital Signs Temp Pulse Resp BP Pulse Ox 36.6 C 76 14 137/85 96 06/14/21 12:11 06/14/21 12:11 06/14/21 12:11 06/14/21 12:11 06/14/21 12:11 Pain Score Most Recent Pain Score: Most Recent Pain Score Pain Level 4 06/14/21 12:11 Assessment Mental Status: Awake (Alert & Oriented to Patient Baseline) Airway and Respiratory Function: Patent airway with normal (patient baseline) respiratory exam Cardiovascular Function: Hemodynamically Stable Hydration Status: Adequately Hydrated Nausea & Vomiting: No Nausea or Vomiting Pain: Pt. Denies Any Pain Peripheral Nerve Block: Patient did not receive a nerve block
[2021-06-14] MEDS: oxyCODONE 5 MG TAB PO (13:22)
== END 2021-06-14 14:38 | disposition home or self-care (01) ==
PROVIDERS: PCP Nurse Practitioner; Visit Provider Student in an Organized Health Care Education/Training Program
PROC: (CPT 29888; principal; 2021-06-14 07:30)
DX: S83.241A Other tear of medial meniscus, current injury, right knee, initial encounter (principal); S83.511A Sprain of anterior cruciate ligament of right knee, initial encounter; S83.281A Other tear of lateral meniscus, current injury, right knee, initial encounter; M25.661 Stiffness of right knee, not elsewhere classified; V80.010A Animal-rider injured by fall from or being thrown from horse in noncollision accident, initial encounter
CPT/HCPCS: 29888; 29880; J0131; J0690; J1100; J1885; J2250; J2405

== ENCOUNTER 2023-03-02 02:40 | Outpatient (CLI) | payer OTHER, SELFPAY ==
[2023-03-02 11:38] LABS: Anion Gap 8.7 mmol/L (3-11); BUN 11 mg/dL (7-18); CO2 26.3 mmol/L (21.0-32.0); CREATININE 0.7 mg/dL (0.55-1.02); Calcium 8.7 mg/dL (8.5-10.1); Chloride 99 mmol/L (98-107); Estimated GFR 106.62 (mL/min/1.73m2); Glucose 387 mg/dL (74-106); Potassium 4.2 mmol/L (3.5-5.1); Sodium 134 mmol/L (136-145)
[2023-03-02 12:57] LABS: Hemoglobin A1C 7.8 % (<5.7)
== END 2023-03-02 02:41 | disposition home or self-care (01) ==
PROVIDERS: PCP Nurse Practitioner; Visit Provider Family Medicine
DX: E11.9 Type 2 diabetes mellitus without complications (principal); Z79.4 Long term (current) use of insulin
CPT/HCPCS: 36415; 80048; 83036

== ENCOUNTER 2023-05-04 04:12 | Outpatient (CLI) | payer OTHER, SELFPAY ==
[2023-05-04 14:17] LABS: Hemoglobin A1C 7.1 % (<5.7)
== END 2023-05-04 04:13 | disposition home or self-care (01) ==
PROVIDERS: PCP Nurse Practitioner; Visit Provider Family Medicine
DX: E11.9 Type 2 diabetes mellitus without complications (principal); Z79.4 Long term (current) use of insulin
CPT/HCPCS: 36415; 83036

== ENCOUNTER 2023-06-18 14:00 | Outpatient (REF) | payer OTHER, SELFPAY ==
--- NOTE | 2023-06-18 13:15 | PAPFT_PTH ---
PATIENT: Deborah Monae LOC: [facility] U#:[id number] AGE/SX: 48/F ROOM: RE06/18/[address]: Samara Cano : 1975 BED: DIS: 06/18/2023 SPEC #: [id number] RECD: 06/18/23 17:54 STATUS: SYLVIA REQ #: [id number] LISA: 06/18/23 13:[address]: Samara Cano DEPT: [facility] Cytology RECD BY: Alexandra Meza ENTERED: 06/18/23 17:54 SP TYPE: PAPFT OTHR DR: Nicole Hua Tissues: 1 - CX/ENDOCX FOR PAP SMEARS Procedures: PAP THIN PREP/UVM Screening HPV DNA PROBE Comments: [id number]
== END 2023-06-18 14:01 | disposition home or self-care (01) ==
LOC: LBN 14:00
PROVIDERS: PCP Nurse Practitioner; Visit Provider Obstetrics & Gynecology Gynecology
DX: Z12.4 Encounter for screening for malignant neoplasm of cervix (principal)
CPT/HCPCS: 88142; 87624

== ENCOUNTER → 2023-08-10 03:16 | Outpatient (CLI) | payer OTHER, SELFPAY ==
--- NOTE | 2023-08-10 12:45 | DI.MAMMO_ITS ---
Exam(s) MAMMO SCREENING EXAM: MAMMO SCREENING CLINICAL HISTORY: screening TECHNIQUE: Bilateral full field digital CC and MLO mammographic images were obtained with 3D tomosyn thesis and utilizing computer aided detection (CAD). COMPARISON: Available for comparison. FINDINGS: Masses/Architectural Distortion: There is a new 5 mm nodule in the outer right breast posteriorly on the craniocaudad view. No areas of architectural distortion are seen. Microcalcifications: No suspicious pleomorphic-type are seen. Skin Thickening/Nipple Retraction: None. IMPRESSION: 1. New 5 mm nodule in the outer right breast on the CC view. 2. Further evaluation with a spot compression views recommended. Limited right breast ultrasound may be indicated at that time. BI-RADS Category 0 - Assessment Incomplete: Need additional imaging evaluation Breast Density - Category B - Scattered areas of fibroglandular density Breast density category C or D implies that the patient has dense breast tissue. Dense breast tissue is very common and is not abnormal but dense breast tissue can make it harder to find cancer on a ma mmogram. Also, dense breast tissue may increase their breast cancer risk. This information about the result of the mammogram report was provided to the patient to raise their awareness. Use this report when you speak with the patient about their risks for breast cancer, which includes their family hist ory. At that time, you may recommend for more screening tests (Ultrasound or MRI) as they might be us eful based on their risk. A negative radiographic report should not delay biopsy if a dominant or clinically suspicious mass is present. Up to ten percent of cancers are not identified on mammography. A negative report may reinforce clinical impression. Adenosis and dense breasts may obscure an underlying neoplasm. False positive reports average 6 to 10%. Patient will receive a letter notifying them of these results.
== END ==
PROVIDERS: PCP Nurse Practitioner; Visit Provider Obstetrics & Gynecology Gynecology
DX: Z12.31 Encounter for screening mammogram for malignant neoplasm of breast (principal)
CPT/HCPCS: 77063; 77067

== ENCOUNTER → 2023-08-13 02:51 | Outpatient (CLI) | payer OTHER, SELFPAY ==
--- NOTE | 2023-08-13 | DI.US_ITS ---
Exam(s) MG MAMMO SCREEN CALL BACK UNI US BREAST RT COMPLETE EXAM: MG MAMMO SCREEN CALL BACK UNI-RIGHT AND COMPLETE RIGHT BREAST ULTRASOUND CLINICAL HISTORY: F/U MAMMO, R92.8,NEW RT BREAST NODULE. TECHNIQUE: Unilateral spot mammographic images obtained with 3D tomosynthesisand utilizing computer aided detection (CAD). . Complete RIGHT breast Ultrasound was also performed, including all 4 quadrants, the retroareolar tomas on, and the ipsilateral axilla. COMPARISON: Prior mammograms were reviewed. This additional imaging was performed due to findings described on the recent screening mammogram of 08/10/2023. FINDINGS: DIAGNOSTIC MAMMOGRAM: Additional mammographic views performed todaydoes not dissipate this small nodule. We proceeded with ultrasound COMPLETE RIGHT BREAST ULTRASOUND: Ultrasound performed today reveals no evidence of solid or significant cystic lesions in all 4 quadra nts, implying that the described on the mammogram is probably a benign intramammary lymph node.. Scanning of the ipsilateral axilla reveals no significant adenopathy. IMPRESSION: 1. Small nodule on the mammogram is probably benign intramammary lymph node given that there are no focal findings on the ultrasound. 2. Appropriate follow-up, as discussed by myself with the patient today, is repeat right breast MAMM OGRAM 6 months to ensure stability.. The patient was informed of these findings and recommendations by myself prior to leaving the departm ent today. BI-RADS Category 3 - 6 month - Probably Benign Finding: Recommend follow-up mammography in 6 months Breast Density - Category B - Scattered areas of fibroglandular density Breast density Category C or D implies that the patient has dense breast tissue. Dense breast tissue can make it harder to find cancer on a mammogram. Dense breast tissue is also associated with an incr eased risk of breast cancer. This information about the result of the mammogram report was provided to the patient to raise their awareness. Use this report when you speak with the patient about their risks for breast cancer, which includes their family history. At that time, you may recommend additional screening tests (Ultrasoun d or MRI) as these tests may add significant information. A negative radiographic report should not delay biopsy if a dominant or clinically suspicious mass is present. Up to ten percent of cancers are not identified on mammography. A negative report may reinforce clinical impression. Adenosis and dense breasts may obscure an underlying neoplasm. False positive reports average 6 to 10%. Patient will receive a letter notifying them of these results.
== END ==
PROVIDERS: PCP Nurse Practitioner; Visit Provider Obstetrics & Gynecology Gynecology
DX: Z12.31 Encounter for screening mammogram for malignant neoplasm of breast (principal); R92.8 Other abnormal and inconclusive findings on diagnostic imaging of breast
CPT/HCPCS: 76642; 77063; 77067

== ENCOUNTER 2023-08-13 19:39 | Outpatient (REF) | payer OTHER, SELFPAY ==
[2023-08-13 19:15] LABS: Abs Immature Grans 0.03 10^3/uL (0.0-0.06); Absolute Basophil Count 0.04 10^3/uL (0.0-0.2); Absolute Eosinophil Count 0.06 10^3/uL (0.0-0.7); Absolute Lymphocyte Count 2.41 10^3/uL (1.2-3.4); Absolute Monocyte Count 0.46 10^3/uL (0.1-0.8); Absolute Neutrophil Count 5.65 10^3/uL (1.2-6.7); Basophils % 0.5; Eosinophils % 0.7; HCT 40.9 % (36.0-46.0); HGB 14.3 g/dL (11.2-15.7); Immature Grans % 0.3; Lymphocytes % 27.9; MCV 89 fL (80-95); MPV 10.4 fL (8.0-11.0); Monocytes % 5.3; Neutrophils % 65.3; Platelet Count 266 10^3/uL (130-400); RBC 4.61 10^6/uL (3.93-5.22); RDW 12.6 % (11.7-14.6); RDW-SD 40.9 fL; WBC 8.65 10^3/uL (4.4-10.8)
[2023-08-13 19:24] LABS: ALT 62 U/L (14-59); AST 34 U/L (15-37); Albumin 3.9 g/dL (3.4-5.0); Alkaline Phosphatase 69 U/L (46-116); Anion Gap 8.8 mmol/L (3-11); BUN 8 mg/dL (7-18); Bilirubin, Total 0.4 mg/dL (0.2-1.0); CO2 27.2 mmol/L (21.0-32.0); CREATININE 0.7 mg/dL (0.55-1.02); Calcium 9.2 mg/dL (8.5-10.1); Chloride 99 mmol/L (98-107); Estimated GFR 106.62 (mL/min/1.73m2); Glucose 229 mg/dL (74-106); Potassium 3.9 mmol/L (3.5-5.1); Sodium 135 mmol/L (136-145)
[2023-08-13 19:39] LABS: Hemoglobin A1C 7.3 % (<5.7)
[2023-08-13 19:45] LABS: Vitamin D 25 Total 44.8 ng/mL (30-100)
[2023-08-16 15:30] LABS: Lamotrigine 2.9 mcg/mL (3.0-15.0)
== END 2023-08-13 19:40 | disposition home or self-care (01) ==
LOC: NCHCN 19:39
PROVIDERS: PCP Nurse Practitioner; Visit Provider Nurse Practitioner Family
DX: E11.9 Type 2 diabetes mellitus without complications (principal)
CPT/HCPCS: 80053; 80175; 82306; 83036; 85025

== ENCOUNTER 2023-10-12 10:44 | Outpatient (REF) | payer OTHER, SELFPAY ==
[2023-10-13 12:41] LABS: Chlamydia Result Negative (Negative); GC Result Negative (Negative)
== END 2023-10-12 10:45 | disposition home or self-care (01) ==
LOC: LBN 10:44
PROVIDERS: Visit Provider Advanced Practice Midwife
DX: N92.6 Irregular menstruation, unspecified (principal); N76.0 Acute vaginitis
CPT/HCPCS: 87491; 87591; 87480; 87510; 87660

== ENCOUNTER 2024-04-14 17:49 | Outpatient (REF) | payer OTHER, SELFPAY ==
[2024-04-14 17:17] LABS: ALT 39 U/L (14-59); AST 24 U/L (15-37); Albumin 3.9 g/dL (3.4-5.0); Alkaline Phosphatase 81 U/L (46-116); Anion Gap 9.8 mmol/L (3-11); BUN 8 mg/dL (7-18); Bilirubin, Total 0.53 mg/dL (0.2-1.0); CO2 27.2 mmol/L (21.0-32.0); CREATININE 0.7 mg/dL (0.55-1.02); Calcium 8.9 mg/dL (8.5-10.1); Chloride 97 mmol/L (98-107); Estimated GFR 105.95 (mL/min/1.73m2); Glucose 244 mg/dL (74-106); Potassium 3.8 mmol/L (3.5-5.1); Sodium 134 mmol/L (136-145); Total Protein 7.2 g/dL (6.4-8.2)
[2024-04-14 17:27] LABS: COMMENT (LAB VIEW ONLY) 15.89 mg/dL; Microalb ug/mg Crea 10.1 ug/mg Cr
[2024-04-14 17:28] LABS: Hemoglobin A1C 6.4 % (<5.7)
== END 2024-04-14 17:50 | disposition home or self-care (01) ==
LOC: NCHCN 17:49
PROVIDERS: Visit Provider Nurse Practitioner Family
DX: E11.9 Type 2 diabetes mellitus without complications (principal)
CPT/HCPCS: 80053; 82043; 82570; 83036

== ENCOUNTER 2024-11-04 18:04 | Outpatient (REF) | payer OTHER, SELFPAY ==
[2024-11-04 21:19] LABS: Abs Immature Grans 0.02 10^3/uL (0.0-0.06); Absolute Basophil Count 0.02 10^3/uL (0.0-0.2); Absolute Eosinophil Count 0.05 10^3/uL (0.0-0.7); Absolute Lymphocyte Count 2.35 10^3/uL (1.2-3.4); Absolute Neutrophil Count 4.33 10^3/uL (1.2-6.7); Basophils % 0.3 %; Eosinophils % 0.7 %; HCT 39.5 % (36.0-46.0); HGB 13.9 g/dL (11.2-15.7); Immature Grans % 0.3 %; Lymphocytes % 31.9 %; MCH 32.3 pg (27.0-33.0); MCHC 35.2 % (32.0-36.0); MCV 92 fL (80-95); MPV 10.1 fL (8.0-11.0); Monocytes % 8.1 %; Neutrophils % 58.7 %; Platelet Count 233 10^3/uL (130-400); RBC 4.31 10^6/uL (3.93-5.22); RDW 12.2 % (11.7-14.6); RDW-SD 40.7 fL; WBC 7.37 10^3/uL (4.4-10.8)
[2024-11-04 21:47] LABS: ALT 33 U/L (14-59); AST 21 U/L (15-37); Albumin 3.9 g/dL (3.4-5.0); Alkaline Phosphatase 81 U/L (46-116); Anion Gap 11.9 mmol/L (3-11); BUN 10 mg/dL (7-18); Bilirubin, Total 0.6 mg/dL (0.2-1.0); CO2 26.1 mmol/L (21.0-32.0); CREATININE 0.8 mg/dL (0.55-1.02); Calcium 9.3 mg/dL (8.5-10.1); Calculated LDL 97 mg/dL (<100); Chloride 100 mmol/L (98-107); Cholesterol 193 mg/dL (<200); Estimated GFR 90.27 (mL/min/1.73m2); Glucose 204 mg/dL (74-106); HDL Cholesterol 50 mg/dL (>or=50); Potassium 3.7 mmol/L (3.5-5.1); Sodium 138 mmol/L (136-145); Total Protein 7.1 g/dL (6.4-8.2); Triglyceride 233 mg/dL (<150)
[2024-11-04 22:00] LABS: Hemoglobin A1C 6.9 % (<5.7)
[2024-11-08 13:46] LABS: Lamotrigine 2.8 mcg/mL (3.0-15.0)
== END 2024-11-04 18:05 | disposition home or self-care (01) ==
LOC: NCHCN 18:04
PROVIDERS: Visit Provider Nurse Practitioner Family
DX: E11.9 Type 2 diabetes mellitus without complications (principal); F31.9 Bipolar disorder, unspecified; I10 Essential (primary) hypertension
CPT/HCPCS: 80053; 80061; 80175; 83036; 85025

== ENCOUNTER 2025-01-05 02:37 | Outpatient (CLI) | payer OTHER, SELFPAY ==
--- NOTE | 2025-01-05 08:15 | DI.MAMMO_ITS ---
Exam(s) MAMMO SCREENING EXAM: MAMMO SCREENING CLINICAL HISTORY: screening,z12.31 TECHNIQUE: Bilateral full field digital CC and MLO mammographic images were obtained with 3D tomosyn thesis and utilizing computer aided detection (CAD). COMPARISON: Available for comparison. FINDINGS: Masses/Architectural Distortion: No suspicious masses or areas of architectural distortion are presen t. Microcalcifications: No suspicious pleomorphic-type are seen. Slight increase in number of a collecti on of calcifications in the upper outer quadrant of the left breast. Skin Thickening/Nipple Retraction: None. IMPRESSION: 1. Increased number of a collection of calcifications in the upper outer quadrant of the left breast. 2. Spot magnification views are requested for further evaluation. BI-RADS Category 0 - Incomplete: Need additional imaging evaluation Breast Density - Category B - There are scattered areas of fibroglandular density. Breast density Category C or D implies that the patient has dense breast tissue. Dense breast tissue can make it harder to find cancer on a mammogram. Dense breast tissue is also associated with an incr eased risk of breast cancer. This information about the result of the mammogram report was provided to the patient to raise their awareness. Use this report when you speak with the patient about their risks for breast cancer, which includes their family history. At that time, you may recommend additional screening tests (Ultrasoun d or MRI) as these tests may add significant information. A negative radiographic report should not delay biopsy if a dominant or clinically suspicious mass is present. Up to ten percent of cancers are not identified on mammography. A negative report may reinforce clinical impression. Adenosis and dense breasts may obscure an underlying neoplasm. False positive reports average 6 to 10%. Patient will receive a letter notifying them of these results.
== END 2025-01-05 02:57 ==
PROVIDERS: PCP Nurse Practitioner Family; Visit Provider Obstetrics & Gynecology
DX: Z12.31 Encounter for screening mammogram for malignant neoplasm of breast (principal); R92.323 Mammographic fibroglandular density, bilateral breasts
CPT/HCPCS: 77063; 77067

== ENCOUNTER 2025-01-10 01:36 | Outpatient (CLI) | payer OTHER, SELFPAY ==
--- NOTE | 2025-01-10 | DI.MAMMO_ITS ---
Exam(s) MG MAMMO SCREEN CALL BACK UNI EXAM: MG MAMMO SCREEN CALL BACK UNI LEFT CLINICAL HISTORY: F/U MAMMO, INCREASED # OF CALCIFICATIONS LT BREAST UOQ. TECHNIQUE: Unilateral LEFT BREAST spot 2D MASS mammographic images obtained and utilizing computer a ided detection (CAD). . COMPARISON: Prior mammograms were reviewed. This additional imaging was performed due to findings described on the recent screening mammogram of 01/05/2025. FINDINGS: DIAGNOSTIC MAMMOGRAM: Additional 2D MAG SPOT mammographic views performed todayreveals the group of microcalcifications in the upper-outer quadrant to be somewhat concerning. Stereotactic biopsy is recommended. IMPRESSION: 1. Left breast microcalcification group requires stereotactic biopsy The patient was informed of these findings and recommendations by myself prior to leaving the depart ent today. Report also called by myself to referring provider Dr. Marcy Higginbotham 01/10/2025 at 2:55 p.m. BI-RADS Category 4 - Suspicious Abnormality: Biopsy should be considered Breast Density - Category C - The breast are heterogeneously dense, which may obscure small masses. Breast density Category C or D implies that the patient has dense breast tissue. Dense breast tissue can make it harder to find cancer on a mammogram. Dense breast tissue is also associated with an incr eased risk of breast cancer. This information about the result of the mammogram report was provided to the patient to raise their awareness. Use this report when you speak with the patient about their risks for breast cancer, which includes their family history. At that time, you may recommend additional screening tests (Ultrasoun d or MRI) as these tests may add significant information. A negative radiographic report should not delay biopsy if a dominant or clinically suspicious mass is present. Up to ten percent of cancers are not identified on mammography. A negative report may reinforce clinical impression. Adenosis and dense breasts may obscure an underlying neoplasm. False positive reports average 6 to 10%. Patient will receive a letter notifying them of these results.
== END 2025-01-10 01:56 ==
LOC: DI 01:36
PROVIDERS: PCP Nurse Practitioner Family; Visit Provider Obstetrics & Gynecology
DX: Z12.31 Encounter for screening mammogram for malignant neoplasm of breast (principal); R92.333 Mammographic heterogeneous density, bilateral breasts
CPT/HCPCS: 77063; 77067